=== PATIENT | female | born 1960 | race Asian ===

== ENCOUNTER 2024-11-13 02:05 | Emergency (ER) | payer BC, SELFPAY ==
[2024-11-13 02:10] VITALS: BP 121/72
[2024-11-13 02:50] LABS: % Basophils 0.5 % (0-2); % Eosinophils 2.3 % (0-6); % Immature Granulocytes 0.3 % (0-0.5); % Lymphocytes 30.8 % (20.5-51.1); % Monocytes 6.9 % (1.7-9.3); % Neutrophils 59.2 % (42.2-75.2); Absolute Eosinophils 0.1 10^3/uL (0-0.7); Absolute Lymphocytes 1.2 10^3/uL (1.2-3.4); Absolute Monocytes 0.3 10^3/uL (0.1-0.6); Absolute Neutrophils 2.3 10^3/uL (1.4-6.5); Hematocrit 34.8 % (37.0-47.0); Hemoglobin 11.9 g/dL (12.0-16.0); Mean Corp Hgb Conc. 34.2 g/dL (33.0-37.0); Mean Corpuscular Hgb 30.1 pg (27.0-31.0); Mean Corpuscular Volume 87.9 fL (81.0-99.0); Mean Platelet Volume 9.5 fL (7.4-10.4); Nucleated Red Blood Cells % 0 %; Platelet Count 315 10^3/uL (130-400); Red Blood Cell Count 3.96 10^6/uL (4.20-5.40); Red Cell Dist. Width 12.5 % (11.5-14.5); White Blood Cell Count 3.9 10^3/uL (4.8-10.8)
[2024-11-13 03:01] LABS: ALT (SGPT) 49 U/L (0-35); AST (SGOT) 38 U/L (14-36); Albumin 4.7 g/dl (3.5-5.0); Alkaline Phosphatase 69 U/L (38-126); Blood Urea Nitrogen 12 mg/dl (7-17); Calcium 9.4 mg/dl (8.4-10.2); Carbon Dioxide 24 mmol/L (22-30); Chloride 104 mmol/L (98-107); Glucose 107 mg/dl (70-99); Potassium 3.7 mmol/L (3.5-5.1); Sodium 138 mmol/L (135-145); Total Bilirubin 0.1 mg/dl (0.2-1.3); Total Protein 7.4 g/dl (6.3-8.2); eGFR > 60.00
[2024-11-13 06:37] VITALS: BP 138/80
--- NOTE | 2024-11-13 07:48 | ED.GENMED ---
History of Present Illness
<KATIANA Hinton - Last Filed: 11/13/24 15:09>
General
Chief Complaint: Blood Pressure Problem
Source: patient and spouse
Exam Limitations: none
Time Seen by Provider: 11/13/24 07:33
Nursing documentation reviewed up to this point in time: agreed with
History of Present Illness
History of Present Illness:
Patient is a 64-year female past medical history of AVM/CVA presents to the ER for evaluation. She reports at 12 AM she had a headache and felt lightheaded and her blood pressure was elevated to the 180s. Patient has a history of chronic weakness
of right upper and lower extremity since having stroke in April.. She reports she was in therapy at [facility]. She reports since last night however she has noticed that her right leg' feels stiff.' She denies feeling any new weakness in this leg.
Patient is followed by neurosurgery Dr. Thien Bee at the [facility]. Her AVM was not surgical they are managing with radiation and her last radiation was September 29. This was a one-time treatment.
She currently denies headache.
No trauma Pt is on lacosamide to prevent seizures she/ deny any seizure activity.
Review of Systems
<KATIANA Hinton - Last Filed: 11/13/24 15:09>
Review of Systems
Allergies reviewed?: Yes
All Other Systems: ROS reviewed and negative except as documented in HPI and ROS
Constitutional: Reports no symptoms; Denies fever, fatigue or chills
EENT: Reports no symptoms
Respiratory: Reports no symptoms
Cardiac: Reports no symptoms
Musculoskeletal: Reports no symptoms
Skin: Reports no symptoms
Neurological: Reports dizzy, headache and other (right leg feels stiff denies any new weakness )
Phy Exam
<KATIANA Hinton - Last Filed: 11/13/24 15:09>
General Physical Exam
General Presentation: no apparent distress
General age: appears stated age
General Skin: warm and dry
General Habitus: normal
General Mental: alert
General Hydration: appears well hydrated
Cardiovascular Exam
Cardiovascular Exam: regular rate/rhythm, no murmur and normal peripheral pulses
Pulmonary Exam
Pulmonary Exam: lungs clear and no respiratory distress
Neurological Exam
Neurological Exam: alert, oriented x3 and other (Chronic right upper and lower extremity weakness,)
Musculoskeletal Exam
Musculoskeletal Exam: full ROM
Skin Exam
Skin Exam: normal color and warm/dry
Course
<KATIANA Hinton - Last Filed: 11/13/24 15:09>
Orders/Labs/Results
Orders:
Orders
11/13/24 02:35
Complete Blood Count/With Diff Urgent
Comprehensive Metabolic Panel Urgent
11/13/24 08:00
CT Head W/o Iv Contrast Urgent
Comment:
Reason For Exam: headache hx of avm/cva
11/13/24 08:43
MRI Brain [MR Brain W/o & With Contrast] Urgent
Comment:
Reason For Exam: headache
OK for patient to be off Cardiac Monitoring for MRI: Yes
Recent pill cam endoscopy?: No
11/13/24 13:32
Vital Signs- Treatment ONCE
Frequency: Once
Abnormal Lab Results
11/13/24
02:35
WBC 3.9 L 10^3/uL
(4.8-10.8)
RBC 3.96 L 10^6/uL
(4.20-5.40)
Hgb 11.9 L g/dL
(12.0-16.0)
Hct 34.8 L %
(37.0-47.0)
Glucose 107 H mg/dl
(70-99)
Total Bilirubin 0.1 L mg/dl
(0.2-1.3)
AST 38 H U/L
(14-36)
ALT 49 H U/L
(0-35)
11/13/24 02:35
11/13/24 02:35
Vital Signs
Initial and Last Documented VS:
Initial Vital Signs
Pulse Resp BP Pulse Ox
70 16 121/72 99
11/13/24 02:10 11/13/24 02:10 11/13/24 02:10 11/13/24 02:10
Last Documented Vital Signs
Temp Pulse Resp BP Pulse Ox
98.3 F 81 20 119/79 100
11/13/24 14:07 11/13/24 14:07 11/13/24 14:07 11/13/24 14:07 11/13/24 14:07
Retail Client Solutions Consultant consulted with Physician
Retail Client [employer] Consultant consulted with physician?: Yes
Name of Physician Consulted: marc
<Jeferson Pulido, DO - Last Filed: 11/13/24 13:41>
Orders/Labs/Results
Orders:
Orders
11/13/24 02:35
Complete Blood Count/With Diff Urgent
Comprehensive Metabolic Panel Urgent
11/13/24 08:00
CT Head W/o Iv Contrast Urgent
Comment:
Reason For Exam: headache hx of avm/cva
11/13/24 08:43
MRI Brain [MR Brain W/o & With Contrast] Urgent
Comment:
Reason For Exam: headache
OK for patient to be off Cardiac Monitoring for MRI: Yes
Recent pill cam endoscopy?: No
11/13/24 13:32
Vital Signs- Treatment ONCE
Frequency: Once
Abnormal Lab Results
11/13/24
02:35
WBC 3.9 L 10^3/uL
(4.8-10.8)
RBC 3.96 L 10^6/uL
(4.20-5.40)
Hgb 11.9 L g/dL
(12.0-16.0)
Hct 34.8 L %
(37.0-47.0)
Glucose 107 H mg/dl
(70-99)
Total Bilirubin 0.1 L mg/dl
(0.2-1.3)
AST 38 H U/L
(14-36)
ALT 49 H U/L
(0-35)
11/13/24 02:35
11/13/24 02:35
Vital Signs
Initial and Last Documented VS:
Initial Vital Signs
Pulse Resp BP Pulse Ox
70 16 121/72 99
11/13/24 02:10 11/13/24 02:10 11/13/24 02:10 11/13/24 02:10
Last Documented Vital Signs
Temp Pulse Resp BP Pulse Ox
98.3 F 81 20 119/79 100
11/13/24 14:07 11/13/24 14:07 11/13/24 14:07 11/13/24 14:07 11/13/24 14:07
<KATIANA Hinton - Last Filed: 11/13/24 15:09>
MDM/Problems Addressed
MDM/Problems Addressed:
Patient is a 64-year-old female with history of AVM, stroke April 2024 with known right upper lower extremity weakness. She presented today complaining of headache lightheadedness and felt stiffness in her affected right leg. She presents awake
alert no acute distress she did have a mild headache. CAT scan was initially done however with history of AVM radiology did request an MRI. MRI was done which does show her known AVM with associated encephalomalacia however no other acute
intracranial abnormality.
On exam there is no seizure activity there is no spasm. Patient now reports she is feeling better no headache at this time; blood pressure has not been elevated here. She denies any fevers and is afebrile her labs are remarkable.
Patient was able to ambulate with a walker and is at baseline. She has chronic weakness as documente (left arm/left leg)
Case reviewed with ED physician who evaluated patient. case reviewed also with neurosurgeon on-call from [facility] Dr. Harinder Lozano. I did review findings of MRI and findings of exam with physician as well as patient's initial
complaint. He does not recommend any other workup. patient does have an appointment with her neurosurgeon in November 30. Will have patient follow-up with family doctor next of days for reevaluation of blood pressure and blood pressure recheck will
have her follow-up with her neurosurgeon
Chronic conditions affecting care:
AVM /CVA
<KATIANA Hinton - Last Filed: 11/13/24 15:09>
*Radiology
Radiology exam reviewed: radiology read reviewed
*Pulse Oximetry
Patient hypoxic: no
*Critical Care Note
Total Time (30-74mins, 75-104mins- exclusive of procedures): Not Applicable
<KATIANA Hinton - Last Filed: 11/13/24 15:09>
Patient Management
Discussion with other providers: Awning Hanger (neuro surg aeronautical engineering teacher DR Lozano ([facility]) )
ED Attending Note
<KATIANA Hinton - Last Filed: 11/13/24 15:09>
-
Portions of this chart may have been created with voice recognition software.� Occasional wrong word or��sound alike� substitutions may have occurred due to the inherent limitations of voice recognition software.
<Jeferson Pulido DO - Last Filed: 11/13/24 13:41>
ED Attending Note
Patient seen and examined by attending physician: Yes
I performed the substantive portion of visit, reviewed & personally made and approve the management plan that is documented in note by myself or NINO.: Yes
ED Attending Note:
64-year-old female with a history of AV malformation treated with radiation. Also history of CVA. Was concerned because she came lightheaded at home. She now feels like there is more spasm in her right leg. The patient states that she is on
baclofen for spasms but just feels a little more uncoordinated. No new weakness. Also noted her blood pressure to be elevated so became concerned. Exam: Awake and alert, is able to lift the leg against gravity without difficulty. states
that it seems to be at baseline. Patient states that she just feels like it is harder to control. Assessment and plan: Very challenging in light of the fact that she has had spasm in this leg before. MR horaciokily she has no new event. Case
discussed by CONSULTING PROPERTY MANAGER with the patient's neurosurgeon. For now okay for discharge
Discharge Plan
Departure
Patient Disposition: Home (Routine Discharge)
Date of Disposition: 11/13/24
Time of Disposition: 14:25
Patient with high blood pressure during this ER visit?: No
Condition: Fair
Covid-19: Not Applicable
Discharge Problem:
Dizziness
Instructions: Dizziness
Prescriptions:
No Action
buspirone 5 mg tablet
5 mg PO BID
dantrolene 25 mg capsule
25 mg PO BID
pantoprazole 40 mg tablet,delayed release (DR/EC)
40 mg PO DAILY
metronidazole 0.75 % gel
1 applic topical .TWICE WEEKLY
rosuvastatin 5 mg tablet
5 mg PO DAILY
lacosamide 100 mg tablet
100 mg PO BID
Referrals:
Christianne Taylor NP [Family Provider] -
Activity Restrictions/Additional Instructions:
Follow-up with your neurological/neurosurgery team at [place] as scheduled in November. Also follow-up with family doctor in the next several days for blood pressure recheck and reevaluation. Return if any worsening of symptoms including headaches
extremity weakness, seizures or any further concerns
Interventions
Interventions:
*Risk Screen - Suicide Last Done: 11/13/24 02:10
*General Assessment Last Done: 11/13/24 02:10
*Neglect/Abuse Screening Last Done: 11/13/24 02:10
ED- Fall Risk Assessment Last Done: 11/13/24 09:10
*ED COVID-19 Vaccine History Last Done: 11/13/24 02:10
*Nursing Disposition Last Done: 11/13/24 14:54
ED- Cardiac Assessment Last Done: 11/13/24 09:10
ED- Neurological Assessment Last Done: 11/13/24 09:10
ED- Pulmonary Assessment Last Done: 11/13/24 09:10
Discharge Date and Time
Discharge Date/Time: 11/13/24 14:55
Print Language: LITHUANIAN
[2024-11-13 10:51] VITALS: BP 128/76
[2024-11-13 14:07] VITALS: BP 119/79
== END 2024-11-13 14:55 | disposition home or self-care (01) ==
LOC: EMR 02:05
PROVIDERS: Student in an Organized Health Care Education/Training Program; EMERGENCY PHYSICIAN Emergency Medicine; FAMILY PHYSICIAN Nurse Practitioner Family
DX: R42 Dizziness and giddiness (principal); Z92.3 Personal history of irradiation
CPT/HCPCS: 99285; 70450; 70553; 80053; 85025; A9575

== ENCOUNTER 2025-10-29 17:37 | Emergency (ER) | payer BC, SELFPAY ==
[2025-10-29 17:47] VITALS: BP 102/66
[2025-10-29 18:12] LABS: Hematocrit 35.6 % (37.0-47.0); Hemoglobin 12.1 g/dL (12.0-16.0); Mean Corp Hgb Conc. 34.0 g/dL (33.0-37.0); Mean Corpuscular Volume 90.1 fL (81.0-99.0); Nucleated Red Blood Cells % 0 %; Platelet Count 384 10^3/uL (130-400); Red Cell Dist. Width 12.2 % (11.5-14.5)
[2025-10-29 18:25] LABS: ALT (SGPT) 19 U/L (0-35); AST (SGOT) 26 U/L (14-36); Albumin 4.8 g/dl (3.5-5.0); Alkaline Phosphatase 54 U/L (38-126); Blood Urea Nitrogen 14 mg/dl (7-17); Calcium 9.7 mg/dl (8.4-10.2); Carbon Dioxide 27 mmol/L (22-30); Chloride 98 mmol/L (98-107); Glucose 81 mg/dl (70-99); Potassium 4.3 mmol/L (3.5-5.1); Sodium 135 mmol/L (135-145); Total Protein 7.8 g/dl (6.3-8.2); eGFR > 60.00
--- NOTE | 2025-10-29 19:48 | ED.GENMED ---
History of Present Illness
General
Chief Complaint: Abdominal Symptoms
Time Seen by Provider: 10/29/25 19:48
History of Present Illness
History of Present Illness:
FOCUSED PAST MEDICAL HISTORY
- High blood pressure
REVIEW OF OLD RECORDS
- I reviewed records, the patient was seen here with dizziness in October 2024
Note:
CHIEF COMPLAINT(S)
Diarrhea and concerns for dehydration.
HISTORY OF PRESENT ILLNESS
The patient is a 65-year-old female who was recently diagnosed with a urinary tract infection (UTI) and was started on an antibiotic regimen. Following the initiation of antibiotics, the patient developed diarrhea. She developed the diarrhea on the
same day she started methylprednisolone which was started due to dental pain after root canal. The primary concern during this visit is the persistency of diarrhea and the potential for dehydration, for which the patient feels she may require
intravenous fluids. She currently has no definite UTI type symptoms. She described the diarrhea as watery in nature.
REVIEW OF SYSTEMS
- Gastrointestinal: Persistent diarrhea.
- Urinary: History of recent urinary tract infection.
PHYSICAL EXAM
General: Alert, no acute distress. Thin build
Skin: Warm, dry.
Head: Normocephalic, atraumatic.
Neck: Supple, trachea midline.
Eye, Ears, Nose, Mouth and Throat: Oral mucosa moist.
Cardiovascular: Normal peripheral perfusion, No edema.
Respiratory: Respirations are non-labored.
Gastrointestinal: Abdomen nondistended.
Back: Normal range of motion, Normal alignment.
Musculoskeletal: Normal range of motion, normal strength.
Neurological: Alert and oriented to person, place, time, and situation, No focal neurological deficit observed.
Psychiatric: Cooperative, appropriate mood & affect.
PROBLEM LIST
Acute:
- Diarrhea secondary to recent antibiotic use.
- Dehydration risk due to ongoing diarrhea.
PLAN
The patient expresses a need to receive intravenous fluids to address concerns about dehydration. Further monitoring of fluid status and management of diarrhea symptoms will be pursued.
DIFFERENTIAL DIAGNOSIS
The Differential Diagnosis includes, in no particular order and is not limited to:
1. Antibiotic-associated diarrhea.
2. Clostridium difficile infection.
3. Gastroenteritis.
4. Inflammatory bowel disease.
5. Irritable bowel syndrome.
6. Lactose intolerance.
7. Diverticulitis.
8. Malabsorption syndrome.
9. Medication-induced diarrhea.
10. Viral infection.
Disposition:
SUMMARY OF ENCOUNTER
The patient, a 65-year-old female, presented to the emergency department with complaints of diarrhea and concerns of dehydration following the initiation of cephalexin for a urinary tract infection diagnosed two weeks prior. The patient reports
experiencing persistent diarrhea and feeling very hot, suggesting potential dehydration. Blood work indicated normal kidney function, alleviating immediate concerns of renal complications due to dehydration. The patient mentioned a recent urinalysis
but no subsequent cultures were communicated to her, leaving uncertainty about the infections status. The patient also reported dizziness and busy sensations after taking a methylprednisolone for a different condition; however, she has discontinued
the steroid after experiencing side effects. Intravenous fluids were administered to address dehydration symptoms.
DISPOSITION
The patient is to be monitored after receiving intravenous fluids.
ASSESSMENT
The diarrhea is potentially linked to recent antibiotic treatment or the initiation of methylprednisolone. The normal kidney function reduces the likelihood of acute kidney injury due to dehydration but needs monitoring.
PLAN
Administer intravenous fluids to address potential dehydration.
Monitor patient�s fluid status and symptoms following IV administration.
Avoid re-prescribing antibiotics until a confirmed urinary tract infection through culture.
Encourage patient to maintain adequate hydration orally if possible.
MEDICAL DECISION MAKING
-Complexity of Data Reviewed:
Based on chronic conditions affecting care: recent urinary tract infection and complications from recent antibiotic use.
Differential diagnosis includes:
1. Antibiotic-associated diarrhea.
2. Clostridium difficile infection.
3. Gastroenteritis.
4. Inflammatory bowel disease.
5. Irritable bowel syndrome.
6. Lactose intolerance.
7. Diverticulitis.
8. Malabsorption syndrome.
9. Medication-induced diarrhea.
10. Viral infection.
-Data:
Category 1
Review of patients normal kidney function from recent blood work.
Assessment of urine sample provided during ED visit.
Category 2
No independent radiology interpretation was mentioned.
-Risk:
Intravenous fluid administration due to dehydration risk after diarrhea.
Avoidance of antibiotic prescription in light of the diarrhea onset.
Diagnosis:
Potential antibiotic-related diarrhea (likely ICD-10 Code: K52.9 - Noninfective gastroenteritis and colitis, unspecified).
Consider possible methylprednisolone side effects, leading to transient symptoms. Further observation and symptom-based management advised.
LABS
- White count 4.5, hemoglobin 12.1, chemistries unremarkable
UPDATE
- IV fluids were given
- Labs are reassuring
- She has a soft nontender abdomen
- On reassessment, she does have some degree of dizziness but overall is well-appearing and overall reports improvement
Phy Exam
Physical Exam
Physical Exam:
See HPI
Course
Orders/Labs/Results
Orders:
Orders
10/29/25 18:00
CMP [Comprehensive Metabolic Panel] Urgent
Complete Blood Count/With Diff Urgent
10/29/25 19:51
0.9% Sodium Chloride 1000 ml [Nss] 1,000 ml IV BOLUS
Abnormal Lab Results
10/29/25
18:00
WBC 4.5 L 10^3/uL
(4.8-10.8)
RBC 3.95 L 10^6/uL
(4.20-5.40)
Hct 35.6 L %
(37.0-47.0)
Total Bilirubin 0.1 L mg/dl
(0.2-1.3)
10/29/25 18:00
10/29/25 18:00
Vital Signs
Initial and Last Documented VS:
Initial Vital Signs
Temp Pulse Resp BP Pulse Ox
36.7 C 65 18 102/66 99
10/29/25 17:47 10/29/25 17:47 10/29/25 17:47 10/29/25 17:47 10/29/25 17:47
Last Documented Vital Signs
Temp Pulse Resp BP Pulse Ox
36.7 C 65 18 105/63 99
10/29/25 17:47 10/29/25 17:47 10/29/25 17:47 10/29/25 22:08 10/29/25 22:31
*Pulse Oximetry
SaO2: 99
Oxygen Mode of Delivery: Room air
Patient hypoxic: no
*Critical Care Note
Total Time (30-74mins, 75-104mins- exclusive of procedures): Not Applicable
ED Attending Note
-
Portions of this chart may have been created with voice recognition software.� Occasional wrong word or��sound alike� substitutions may have occurred due to the inherent limitations of voice recognition software.
Discharge Plan
Departure
Prescriptions:
No Action
buspirone 5 mg tablet
5 mg PO BID
dantrolene 25 mg capsule
25 mg PO BID
pantoprazole 40 mg tablet,delayed release (DR/EC)
40 mg PO DAILY
metronidazole 0.75 % gel
1 applic topical .TWICE WEEKLY
rosuvastatin 5 mg tablet
5 mg PO DAILY
lacosamide 100 mg tablet
100 mg PO BID
Referrals:
NONE,* [Family Provider, Internal Medicine]
Interventions
Interventions:
*Risk Screen - Suicide Last Done: 10/29/25 17:47
*General Assessment Last Done: 10/29/25 17:47
*Neglect/Abuse Screening Last Done: 10/29/25 17:47
*ED COVID-19 Vaccine History Last Done: 10/29/25 17:47
*ED Influenza Vaccine History Last Done: 10/29/25 17:47
[facility] Fall Risk Assessment Tool Last Done: 10/29/25 20:07
[facility] Assessment Last Done: 10/29/25 20:00
Discharge Date and Time
Print Language: VENEZUELAN
[2025-10-29 20:00] VITALS: BP 99/57; BMI 16.2
[2025-10-29] MEDS: NSS 1000 IV (20:16)
[2025-10-29 21:00] VITALS: BP 102/66
[2025-10-29 22:00] VITALS: BP 93/66
[2025-10-29 22:08] VITALS: BP 105/63
== END 2025-10-29 22:56 | disposition home or self-care (01) ==
LOC: EMR 17:37
PROVIDERS: Emergency Medicine; EMERGENCY PHYSICIAN Emergency Medicine
DX: E86.0 Dehydration (principal); R19.7 Diarrhea, unspecified
CPT/HCPCS: 99283; 80053; 85025

== ENCOUNTER 2025-11-04 20:33 | Emergency (ER) | payer BC, SELFPAY ==
[2025-11-04 20:35] VITALS: BP 109/62
[2025-11-04 21:02] LABS: Hematocrit 35.8 % (37.0-47.0); Hemoglobin 12.1 g/dL (12.0-16.0); Mean Corp Hgb Conc. 33.8 g/dL (33.0-37.0); Mean Corpuscular Volume 87.7 fL (81.0-99.0); Nucleated Red Blood Cells % 0 %; Platelet Count 459 10^3/uL (130-400); Red Cell Dist. Width 12.3 % (11.5-14.5)
[2025-11-04 21:17] VITALS: BP 104/52
[2025-11-04 21:24] VITALS: BMI 14.9
[2025-11-04 21:25] LABS: ALT (SGPT) 23 U/L (0-35); AST (SGOT) 29 U/L (14-36); Albumin 5.0 g/dl (3.5-5.0); Alkaline Phosphatase 51 U/L (38-126); Blood Urea Nitrogen 11 mg/dl (7-17); Calcium 9.6 mg/dl (8.4-10.2); Carbon Dioxide 26 mmol/L (22-30); Chloride 100 mmol/L (98-107); Glucose 95 mg/dl (70-99); Potassium 4.4 mmol/L (3.5-5.1); Sodium 136 mmol/L (135-145); Total Protein 7.9 g/dl (6.3-8.2); eGFR > 60.00
[2025-11-04 21:29] LABS: Troponin I < 0.012 ng/ml
[2025-11-04 22:00] VITALS: BP 98/61
[2025-11-04 23:00] VITALS: BP 97/65
[2025-11-04] MEDS: NSS 500 IV (23:35)
[2025-11-04 23:38] VITALS: BP 121/72
[2025-11-05 00:35] LABS: Iron 64 ug/dl (37-170)
[2025-11-05 00:43] LABS: Total Iron Binding Capacity 312 ug/dl (265-497)
--- NOTE | 2025-11-05 03:04 | ED.GENMED ---
History of Present Illness
General
Chief Complaint: Dizziness
Source: patient
Time Seen by Provider: 11/04/25 22:56
Nursing documentation reviewed up to this point in time: agreed with
History of Present Illness
History of Present Illness:
Note:
CHIEF COMPLAINT(S)
Dizziness and blurry vision.
HISTORY OF PRESENT ILLNESS
The patient is a 65-year-old female with a past medical history significant for iron deficiency and previously low sodium levels, presenting with dizziness and blurry vision. She reports feeling 'very blurry' and 'dizzy,' expressing concern about
her symptoms. The dizziness began a few days ago and has progressively worsened, with today being the most severe. The patient has a known history of low sodium levels and questions if sodium might be causing these symptoms. She experiences a
persistent low blood pressure reading of 97/65 mmHg, which she noted is lower than usual but not unprecedented. The patient has a history of one episode where her blood pressure dropped to 89 mmHg.
The dizziness was attributed to Pantoprazole, which she took two days ago, and she has since discontinued the medication. She also mentions experiencing numbness when lying down and after taking this medication. The patient is undergoing further
evaluation for her iron deficiency, which was better managed previously, and suspects a potential vitamin B deficiency, as noted through a friends similar experience.
PAST MEDICAL AND SURGICAL HISTORY
The patient has a history of iron deficiency.
PLAN
- Administer intravenous fluids to address hypotension and possibly improve symptoms of dizziness.
- Order a head CT scan to evaluate any intracranial causes for dizziness and blurry vision.
- Conduct an iron study to assess current iron status and possible deficiency.
- Monitor vital signs closely, with particular attention to blood pressure, aiming to maintain it above the current level of 97/65 mmHg.
- Evaluate the need for vitamin B supplementation based on further laboratory results and clinical assessment.
DIFFERENTIAL DIAGNOSIS
The Differential Diagnosis includes, in no particular order and is not limited to:
1. Orthostatic hypotension
2. Vestibular dysfunction
3. Intracranial pathology
4. Anemia or iron deficiency
5. Electrolyte imbalance, specifically hyponatremia
6. Medication-induced side effects (Pantoprazole)
7. Vitamin B deficiency
8. Dehydration
9. Cardiovascular causes (such as arrhythmias)
10. Neurological disorders (such as transient ischemic attack)
EKG
My independent EKG interpretation is:
- Time of EKG: Not specified
- Rhythm: Normal
- Heart Rate: 76 bpm
- [place] Interval: Normal
- QRS Duration: Normal
- QT Interval: Normal
- [place]: Normal
- Abnormalities: None observed
- Overall: This is a normal EKG
Disposition:
SUMMARY OF ENCOUNTER
The patient is a 65-year-old female presenting with dizziness and transient blurry vision. She reports associated symptoms of chest pain and sharpness in the chest. Despite these symptoms, she has ambulated without issue. Laboratory work, including
iron studies, appears normal.
DISPOSITION
Discharge home.
INDEPENDENT REVIEW OF LABS AND INTERPRETATION OF TESTS
My independent review of iron studies indicates normal results.
PATIENT EDUCATION AND COUNSELING
The patient was informed about the normal results of her laboratory work, including iron studies, and was advised on symptoms to monitor that would require immediate medical attention.
MEDICAL DECISION MAKING
-Complexity of Data Reviewed: Chronic conditions affecting care include anemia. Differential Diagnosis includes orthostatic hypotension, vestibular dysfunction, intracranial pathology, anemia or iron deficiency, electrolyte imbalance, specifically
hyponatremia, medication-induced side effects (pantoprazole), vitamin B deficiency, dehydration, cardiovascular causes (such as arrhythmias), neurological disorders (such as transient ischemic attack).
-Data:
Category 1
Lab work was conducted, and iron studies were reviewed.
-Risk:
Consideration of Admission/Observation: Escalation of care including admission/observation was considered given the complexity and risk of the patients presenting complaint and underlying comorbidities. However, ultimately, I feel the patient is
safe for outpatient management with close follow-up. Reasoning: Work-up reassuring, does not reveal any acute life/organ threatening processes, patients symptoms well-controlled upon reevaluation, reexamination is reassuring, vitals are stable,
patient agreeable with discharge, reliable for follow-up.
DIAGNOSIS
Dizziness and giddiness (R42)
Transient visual loss (H.53.14)
Phy Exam
Physical Exam
Physical Exam:
.
Course
Orders/Labs/Results
Orders:
Orders
11/04/25 20:39
Electrocardiogram (*1) Urgent
Reason for Study: Chest Pain
EKG- Treatment ONCE
11/04/25 20:52
Complete Blood Count/With Diff Urgent
Comprehensive Metabolic Panel Urgent
Troponin I Urgent
11/04/25 23:12
CT Head W/o Iv Contrast Urgent
Comment:
Reason For Exam: dizziness, hx of cva
0.9% Sodium Chloride 500 ml [Nss] 500 ml IV BOLUS
11/04/25 23:34
Iron Urgent
Total Iron Binding Urgent
Abnormal Lab Results
11/04/25
20:52
RBC 4.08 L 10^6/uL
(4.20-5.40)
Hct 35.8 L %
(37.0-47.0)
Plt Count 459 H 10^3/uL
(130-400)
Total Bilirubin 0.1 L mg/dl
(0.2-1.3)
11/04/25 20:52
11/04/25 20:52
Vital Signs
Initial and Last Documented VS:
Initial Vital Signs
Temp Pulse Resp BP Pulse Ox
98.2 F 82 19 109/62 99
11/04/25 20:35 11/04/25 20:35 11/04/25 20:35 11/04/25 20:35 11/04/25 20:35
Last Documented Vital Signs
Temp Pulse Resp BP Pulse Ox
98.2 F 68 16 121/72 99
11/04/25 20:35 11/04/25 23:38 11/04/25 23:38 11/04/25 23:38 11/05/25 03:07
*Radiology
Radiology exam reviewed: radiology read reviewed
*Pulse Oximetry
SaO2: 99
Patient hypoxic: no
*Critical Care Note
Total Time (30-74mins, 75-104mins- exclusive of procedures): Not Applicable
Update Note
Update Note:
NAME: MATHEW OLMSTEAD
DATE OF EXAM: 11/05/2025
Patient No: [id number]
Physician: DANY
Date of : 1960
Past Medical History (entered by Technologist):
Reason For Exam (entered by Technologist):
Other Notes (entered by Technologist): Pt states she took pantoprazole and became dizzy, took her BP and it was low, felt like her vision became blurry. Feels very fatigued
Additional Information (per Vision Radiologist):
CT HEAD WITHOUT CONTRAST
COMPARISON: 11/13/2024
IMPRESSION:
Vasogenic edema in the left posterior frontal/parietal lobe is similar in configuration to previous with associated volume loss. Interval decrease in dilation of left superior convexity cortical vein. No acute hemorrhage. This may indicate an
underlying shunting lesion such as AVM or DAVF or venous outflow abnormality. If angiographic imaging has not been previously performed, it is recommended
No mass effect or midline shift.
Ventricles are normal without hydrocephalus.
Visualized paranasal sinuses and mastoids are clear.
No calvarial lesion.
Case finalized on 11/05/25 02:53 EDT
Piter Son M.D.
This report has been electronically signed and verified by the Radiologist whose name is printed above.
ED Attending Note
-
Portions of this chart may have been created with voice recognition software.� Occasional wrong word or��sound alike� substitutions may have occurred due to the inherent limitations of voice recognition software.
Discharge Plan
Departure
Patient Disposition: Home (Routine Discharge)
Date of Disposition: 11/05/25
Time of Disposition: 03:07
Patient with high blood pressure during this ER visit?: Yes
Condition: Good
Discharge Problem:
Dizziness
Instructions: Dizziness, BLOOD PRESSURE
Prescriptions:
No Action
buspirone 5 mg tablet
5 mg PO BID
dantrolene 25 mg capsule
25 mg PO BID
pantoprazole 40 mg tablet,delayed release (DR/EC)
40 mg PO DAILY
metronidazole 0.75 % gel
1 applic topical .TWICE WEEKLY
rosuvastatin 5 mg tablet
5 mg PO DAILY
lacosamide 100 mg tablet
100 mg PO BID
Referrals:
Kathy Ambrocio MD [Family Provider, [facility]]
Activity Restrictions/Additional Instructions:
Thank You for choosing [facility].
It was a pleasure meeting you and taking part in your care. We hope for your continued healing and wellness.
Please read discharge instructions in their entirety. However, they are for general education and may not describe your exact diagnosis at discharge. Information on your ER visit and medical conditions were discussed with you along with appropriate
follow up information...
If indicated, please take your medications as instructed and indicated on discharge paperwork.
Please schedule a follow up appointment as directed. Call to schedule an appointment
Please return to the emergency department with ANY change in, persisting, or worsening of symptoms. If any of your symptoms do not improve, or persist, or become more severe within 6-12 hours, please return to the emergency department for further
care.
Please return to the emergency department if you develop a headache, neck pain/stiffness, fever greater than 100.4F, chest pain, shortness of breath, persistent nausea, vomiting, slurred speech, difficulty walking, numbness/tingling, weakness, signs
of infection or any other symptoms that are worrisome to you.
If you have any questions or concerns please do not hesitate to call the Hospital at .
Interventions
Interventions:
*General Assessment Last Done: 11/04/25 20:38
*Neglect/Abuse Screening Last Done: 11/04/25 21:23
*ED COVID-19 Vaccine History Last Done: 11/04/25 20:38
*ED Influenza Vaccine History Last Done: 11/04/25 20:38
[facility] Fall Risk Assessment Tool Last Done: 11/04/25 21:18
*Risk Screen - Suicide (C-SSRS) Last Done: 11/04/25 21:23
*Nursing Disposition Last Done: 11/05/25 03:57
ED- Neurological Assessment Last Done: 11/04/25 21:21
ED- Cardiac Assessment Last Done: 11/05/25 00:24
ED Swallowing Screen Last Done: 11/04/25 23:41
Discharge Date and Time
Discharge Date/Time: 11/05/25 04:13
Print Language: [place]
== END 2025-11-05 04:13 | disposition home or self-care (01) ==
LOC: EMR 20:33
PROVIDERS: Emergency Medicine; EMERGENCY PHYSICIAN Student in an Organized Health Care Education/Training Program; FAMILY PHYSICIAN Family Medicine
DX: R42 Dizziness and giddiness (principal); R03.0 Elevated blood-pressure reading, without diagnosis of hypertension; Z86.73 Personal history of transient ischemic attack (TIA), and cerebral infarction without residual deficits
CPT/HCPCS: 99284; 70450; 80053; 83540; 83550; 84484; 85025; 93005

== ENCOUNTER 2025-11-07 09:47 | Emergency (ER) | payer BC, MEDICARE, SELFPAY ==
[2025-11-07 10:09] VITALS: BP 85/51
[2025-11-07 11:19] VITALS: BP 91/62
--- NOTE | 2025-11-07 11:27 | ED.GENMED ---
History of Present Illness
General
Chief Complaint: Urinary Symptoms
Source: patient
Exam Limitations: none
Time Seen by Provider: 11/07/25 11:11
Nursing documentation reviewed up to this point in time: agreed with
History of Present Illness
History of Present Illness:
Patient is a 65-year-old female with history of intracranial hemorrhage, seizure constipation presents to the ER for evaluation. Patient started with increased urination last night and lower abdominal pressure. She does have a history of
constipation she did move her bowels yesterday but not today. She is on MiraLAX. She went to the ER at [facility] weeks ago for urinary symptoms however was told there was no bacteria in her culture.
She still complains of some frequent urination. Denies any nausea vomiting fever chills or back pain.
Phy Exam
General Physical Exam
General Presentation: no apparent distress
General age: appears stated age
General Skin: warm and dry
General Habitus: normal
General Mental: alert
General Hydration: appears well hydrated
Neurological Exam
Neurological Exam: alert and oriented x3
Musculoskeletal Exam
Musculoskeletal Exam: full ROM
Skin Exam
Skin Exam: normal color and warm/dry
Psychiatric Exam
Psychiatric Exam: normal mood/affect
Course
Orders/Labs/Results
Orders:
Orders
11/07/25 11:27
Complete Blood Count/With Diff Urgent
Lactic Acid Urgent
11/07/25 11:36
Iohexol [Omnipaque] See Protocol PO NOW STA
11/07/25 11:37
CT Abd/pel W Iv And Oral Contr Urgent
Comment:
Reason For Exam: abd pain /constipation urinary frequency
11/07/25 11:38
0.9% Sodium Chloride 1000 ml [Nss] 1,000 ml IV BOLUS
11/07/25 11:58
Comprehensive Metabolic Panel Urgent
11/07/25 12:59
UA Reflex to Culture [Urinalysis Reflex To Culture] Urgent
Date Specimen was Collected: 11/07/25
Time Specimen was Collected: 12:58
Urine Microscopic Reflex Cult Urgent
Urine Culture Urgent
[place] Source: U
Specimen Description:
Date Specimen was Collected: 11/07/25
Time Specimen was Collected: 12:58
Abnormal Lab Results
11/07/25 11/07/25 11/07/25
11:27 11:58 12:59
WBC 3.5 L 10^3/uL
(4.8-10.8)
RBC 3.72 L 10^6/uL
(4.20-5.40)
Hgb 11.0 L g/dL
(12.0-16.0)
Hct 32.4 L %
(37.0-47.0)
Plt Count 422 H 10^3/uL
(130-400)
Sodium 132 L mmol/L
(135-145)
Creatinine 0.5 L mg/dL
(0.6-1.0)
Glucose 67 L mg/dl
(70-99)
Leukocyte Esterase Rfl 1+ A
(Negative)
Urine Bacteria (Reflex) Few A
(Negative)
11/07/25 11:27
11/07/25 11:58
Vital Signs
Initial and Last Documented VS:
Initial Vital Signs
Temp Pulse BP Pulse Ox
98.5 F 75 85/51 99
11/07/25 10:09 11/07/25 10:09 11/07/25 10:09 11/07/25 10:09
Last Documented Vital Signs
Temp Pulse Resp BP Pulse Ox
98.5 F 67 16 96/57 98
11/07/25 10:09 11/07/25 13:04 11/07/25 14:04 11/07/25 14:00 11/07/25 14:22
MDM/Problems Addressed
Differential Diagnosis Includes:
Not limited to UTI diverticulitis constipation.
MDM/Problems Addressed:
Patient is a 65-year-old female complains of some chronic constipation MiraLAX last moved her bowels yesterday. In addition she has had urinary frequency. On exam her abdomen is soft where she had some nonspecific abdominal tenderness and
therefore CAT scan was done. CAT scan shows large volume of colonic stool suggesting constipation urinalysis negative for infection.
Patient's hemoglobin stable at 11.0, chemistry is unremarkable. She is in no acute distress stable for discharge home with instructions to continue MiraLAX. We did discuss diet. Patient does eat a lot of bananas I did
Instruct patient to avoid bananas and I did review diet for constipation.
*Radiology
Radiology exam reviewed: radiology read reviewed
*Pulse Oximetry
SaO2: 99
Oxygen Mode of Delivery: Room air
Patient hypoxic: no
*Critical Care Note
Total Time (30-74mins, 75-104mins- exclusive of procedures): Not Applicable
ED Attending Note
-
Portions of this chart may have been created with voice recognition software.� Occasional wrong word or��sound alike� substitutions may have occurred due to the inherent limitations of voice recognition software.
Discharge Plan
Departure
Patient Disposition: Home (Routine Discharge)
Date of Disposition: 11/07/25
Time of Disposition: 15:58
Admit to doctor: .
Patient with high blood pressure during this ER visit?: No
Condition: Fair
Covid-19: Not Applicable
Discharge Problem:
Constipation
Instructions: Constipation in adults - ED (DC)
Prescriptions:
No Action
buspirone 5 mg tablet
5 mg PO BID
dantrolene 25 mg capsule
25 mg PO BID
pantoprazole 40 mg tablet,delayed release (DR/EC)
40 mg PO DAILY
metronidazole 0.75 % gel
1 applic topical .TWICE WEEKLY
rosuvastatin 5 mg tablet
5 mg PO DAILY
lacosamide 100 mg tablet
100 mg PO BID
Referrals:
UNKNOWN - PT DOES,NOT KNOW [Family Provider]
Activity Restrictions/Additional Instructions:
As discussed continue MiraLAX daily. Please increase water intake as well as foods high in fiber, fresh fruits and vegetables apples with the skin blueberries, prune juice. Avoid constipating foods such as pastas, and bananas.
See family doctor in the next 2 days and return if any worsening of symptoms.
Interventions
Interventions:
*General Assessment Last Done: 11/07/25 11:30
*Neglect/Abuse Screening Last Done: 11/07/25 10:09
*ED COVID-19 Vaccine History Last Done: 11/07/25 11:30
*ED Influenza Vaccine History Last Done: 11/07/25 11:30
[facility] Fall Risk Assessment Tool Last Done: 11/07/25 11:29
*Risk Screen - Suicide (C-SSRS) Last Done: 11/07/25 10:09
ED-Female Genitourinary Assessment Last Done: 11/07/25 11:29
Discharge Date and Time
Print Language: [place]
[2025-11-07 11:29] VITALS: BMI 15.3
[2025-11-07 11:43] LABS: Hematocrit 32.4 % (37.0-47.0); Hemoglobin 11.0 g/dL (12.0-16.0); Mean Corp Hgb Conc. 34.0 g/dL (33.0-37.0); Mean Corpuscular Volume 87.1 fL (81.0-99.0); Nucleated Red Blood Cells % 0 %; Platelet Count 422 10^3/uL (130-400); Red Cell Dist. Width 12.2 % (11.5-14.5)
[2025-11-07] MEDS: NSS 1000 IV (11:45)
[2025-11-07] MEDS: OMNIPAQUE 50 ML PO (11:46)
[2025-11-07 12:00] VITALS: BP 110/71
[2025-11-07 12:41] LABS: ALT (SGPT) 17 U/L (0-35); AST (SGOT) 22 U/L (14-36); Albumin 4.0 g/dl (3.5-5.0); Alkaline Phosphatase 40 U/L (38-126); Blood Urea Nitrogen 8 mg/dl (7-17); Calcium 8.7 mg/dl (8.4-10.2); Carbon Dioxide 24 mmol/L (22-30); Chloride 103 mmol/L (98-107); Estimated Creatinine Clearance 55 ml/min; Glucose 67 mg/dl (70-99); Potassium 3.8 mmol/L (3.5-5.1); Sodium 132 mmol/L (135-145); Total Protein 6.8 g/dl (6.3-8.2); eGFR > 60.00
[2025-11-07 13:00] VITALS: BP 120/76
[2025-11-07 13:09] LABS: Urine Character Clear (Clear)
[2025-11-07 13:32] LABS: Urine Red Blood Cell 0-2 /HPF (0-2); Urine White Cell 0-2 /HPF (0-5)
[2025-11-07 14:00] VITALS: BP 96/57
[2025-11-07 16:53] VITALS: BP 106/71
== END 2025-11-07 17:19 | disposition home or self-care (01) ==
LOC: EMR 09:47
PROVIDERS: Nurse Practitioner; EMERGENCY PHYSICIAN Emergency Medicine
DX: K59.09 Other constipation (principal)
CPT/HCPCS: 99284; 96360; 74177; 80053; 81003; 81015; 83605; 85025; 87086; Q9967

== ENCOUNTER 2025-11-15 23:58 | Emergency (ER) | payer BC, MEDICARE, SELFPAY ==
[2025-11-16 00:43] VITALS: BP 81/49
[2025-11-16 01:33] LABS: Hematocrit 35.0 % (37.0-47.0); Hemoglobin 11.8 g/dL (12.0-16.0); Mean Corp Hgb Conc. 33.7 g/dL (33.0-37.0); Mean Corpuscular Volume 89.3 fL (81.0-99.0); Nucleated Red Blood Cells % 0 %; Platelet Count 365 10^3/uL (130-400); Red Cell Dist. Width 12.7 % (11.5-14.5)
[2025-11-16 01:48] LABS: ALT (SGPT) 26 U/L (0-35); AST (SGOT) 27 U/L (14-36); Albumin 4.5 g/dl (3.5-5.0); Alkaline Phosphatase 46 U/L (38-126); Blood Urea Nitrogen 12 mg/dl (7-17); Calcium 9.4 mg/dl (8.4-10.2); Carbon Dioxide 28 mmol/L (22-30); Chloride 102 mmol/L (98-107); Glucose 77 mg/dl (70-99); Potassium 4.0 mmol/L (3.5-5.1); Sodium 137 mmol/L (135-145); Total Protein 7.4 g/dl (6.3-8.2); eGFR > 60.00
[2025-11-16 02:00] LABS: Troponin I < 0.012 ng/ml
== END 2025-11-16 03:05 ==
LOC: EMR 23:58
PROVIDERS: Emergency Medicine
DX: Z53.21 Procedure and treatment not carried out due to patient leaving prior to being seen by health care provider (principal)
CPT/HCPCS: 80053; 84484; 85025; 93005